=== PATIENT | male | born 1960 | race Caucasian/White ===

== ENCOUNTER 2021-10-11 17:07 | Emergency (ER) | payer OTHER ==
[2021-10-11 17:40] VITALS: BMI 31.0
[2021-10-11] MEDS ORDERED: BAMLANIVIMAB 700 MG, ETESEVIMAB 1,400 MG in SODIUM CHLORIDE 100 ML IVPB ONE (19:33)
[2021-10-11 22:16] VITALS: BP 135/89; PULSE 89; TEMP 98.9
== END 2021-10-11 22:15 | disposition home or self-care (01) ==
LOC: JER 17:07
DX: U07.1 COVID-19 (principal)
CPT/HCPCS: 96374; 99284-25; M0239; Q0239; Q0245